=== PATIENT | male | born 1955 | race Caucasian/White ===

== ENCOUNTER 2017-10-27 06:46 | Day surgery (SDC) | payer OTHER ==
[2017-10-27] MEDS ORDERED: NALOXONE HCL INJ/PF 0.4 MG/1 ML SDV ONE (07:14)
[2017-10-27] MEDS ORDERED: ONDANSETRON HCL INJ/PF 4 MG/2 ML SDV ONE (07:14)
[2017-10-27] MEDS ORDERED: DIPHENHYDRAMINE HCL 50 MG/ML VIAL ONE (07:14)
[2017-10-27] MEDS ORDERED: FLUMAZENIL INJ 0.5 MG/5 ML VIAL ONE (07:15)
[2017-10-27] MEDS ORDERED: GLUCAGON,HUMAN RECOMB 1 MG INJ ONE (07:15)
[2017-10-27] MEDS ORDERED: FENTANYL CITRATE INJ/PF 100 MCG/2 ML AMPUL ONE (07:15)
[2017-10-27] MEDS ORDERED: EPINEPHRINE INJ 1 MG/10 ML DISP.SYRIN ONE (07:15)
[2017-10-27] MEDS: MIDAZOLAM 2 MG/2 ML INJ ONE ×3 (07:38→07:44)
--- NOTE | 2017-10-27 08:20 | Discharge Summary ---
Discharge Summary (SDC) - Discharge Final Diagnosis: Normal colon Status post colonoscopy to cecum Date of Surgery: 10/27/17 Discharge Date: 10/27/17 Condition: Good Treatment or Instructions: [facility] [place] [id number] POST ENDOSCOPY DISCHARGE INSTRUCTIONS 1. Diet: Start clear liquids that a regular diet as tolerated. 2. Resume all preoperative medications. All oral anticoagulants and aspirins can be resumed 24 hours after procedure. 3. If a polypectomy was performed some bleeding per rectum may occur. This should stop within 3 days. If not, please contact the office. 4. If you had a colonoscopy you may experience some bloating and delayed return of normal bowel function for several days, your regular bowel movement pattern should resume within a week. 5. Please contact [facility] at to make an appointment with Dr. De Leon for 1 to 3 weeks following procedure. 6. If you have any questions or concerns regarding your care,treatment plan or follow up, please contact our office. 7. Per clinical guidelines we recommend you undergo a repeat colonoscopy in 10 years. Referrals: RUDDY BARBOZA MD [Primary Care Provider] - Discharge Diet: As Tolerated Discharge Activity: Activity As Tolerated Home Care Assistance: None Needed Report the Following to Your Physician Immediately: Shortness of Breath, Increase in Pain, Fever over 101 Degrees
--- NOTE | 2017-10-27 08:23 | Operative Report ---
Operative Report DATE OF SURGERY: 10/27/17 PREOPERATIVE DIAGNOSIS: 1. Need for screening colonoscopy. 2. History of anal fissure POSTOPERATIVE DIAGNOSIS: 1. Normal colonoscopy see him. 2. Small posterior left lateral anal irritation OPERATION: Total colonoscopy to cecum with photodocumentation SURGEON: DENNY DUKES ANESTHESIA: Moderate Sedation TISSUE REMOVED OR ALTERED: None COMPLICATIONS: None ESTIMATED BLOOD LOSS: None INTRAOPERATIVE FINDINGS: See below PROCEDURE: Obtaining informed consent the patient was taken from the preoperative holding area to the main endoscopy suite where monitoring devices were attached to the patient. Plan and surgical timeout were conducted The patient was placed in the left lateral decubitus position with knees to chest. A perianal examination was performed. There was no visible or palpable anorectal pathology. Sphincter tone was felt to be normal. There was a small left posterior lateral anal verge de-epithelialized area possible very superficial fissure. The flexible adult colonoscope was advanced through the anal rectal canal, all the way to the cecum. Visualization of the cecum was achieved and the ileocecal valve, the appendiceal orifice and transillumination of the anterior abdominal wall. The scope was actually advanced approximately 10 cm into the terminal ileum with the ileum appeared normal. This was an excellent study on the well-prepped bowel. The colonoscope was withdrawn slowly and methodically checked and the mucosa carefully. There was no evidence of tumor, stricture, bleeding or polyp. There was no evidence of diverticuloses. The scope was slowly withdrawn through the anal rectal canal. Complete visualization of the rectum was achieved with photodocumentation. The scope was withdrawn to the patient's anus. The patient tolerated the procedure well and was taken to the recovery area in stable condition. Per screening guidelines, patient be appropriate candidate for follow-up colonoscopy in 10 years
[2017-10-27 09:04] VITALS: BP 152/98
== END 2017-10-27 09:08 | disposition home or self-care (01) ==
LOC: END 06:46
PROVIDERS: ATTEND Surgery
DX: Z12.11 Encounter for screening for malignant neoplasm of colon (principal); Z85.46 Personal history of malignant neoplasm of prostate; M25.50 Pain in unspecified joint; Z79.1 Long term (current) use of non-steroidal anti-inflammatories (NSAID); Z79.899 Other long term (current) drug therapy; Z87.19 Personal history of other diseases of the digestive system
CPT/HCPCS: 45378; J2250; J3010; J0171; J1200; J1610; J2310; J2405; J3490